=== PATIENT | female | born 1985 | race Caucasian/White ===

== ENCOUNTER 2016-04-27 10:09 | Emergency (ER) | payer OTHER ==
[~2016-04-27] VITALS: Ht 177.8 cm; Wt 72.6 kg
[~2016-04-27 10:09] MED LIST: ESCI10TA
--- NOTE | 2016-04-27 10:15 | NUR ---
AAOX3, CAME TO ER C/O LOWER BACK PAIN RADIATING DOWN BILATERAL LOWER EXTREMITIES SINCE YESTERDAY S/P BENDING OVER. RR IS EVEN AND UNLABORED WITH NAD NOTED. SKIN IS WARM AND NON DIAPHORETIC. AWAITING MD FOR EVAL.
[2016-04-27] MEDS ORDERED: HYDROCODONE/APAP 10/325MG 1 EA TABLET ONE (10:51)
[2016-04-27] MEDS ORDERED: KETOROLAC TROMETHAMINE INJ 60 MG/2 ML VIAL IM ONE (10:51)
[2016-04-27] MEDS: KETOROLAC TROMETHAMINE INJ 60 MG/2 ML VIAL IM ONE (10:59)
[2016-04-27] MEDS: HYDROCODONE/APAP 10/325MG 1 EA TABLET PO ONE (11:00)
--- NOTE | 2016-04-27 11:50 | NUR ---
Patient discharged to home in stable condition. Written and verbal after care instructions given. Patient verbalizes understanding of instruction.
[2016-04-27 12:05] VITALS: BP 120/85
== END 2016-04-27 11:50 | disposition home or self-care (01) ==
LOC: ER 10:11
DX: M54.5 Low back pain (principal); F41.9 Anxiety disorder, unspecified; F31.9 Bipolar disorder, unspecified; F32.9 Major depressive disorder, single episode, unspecified; F17.200 Nicotine dependence, unspecified, uncomplicated; Z88.6 Allergy status to analgesic agent; Z88.8 Allergy status to other drugs, medicaments and biological substances
CPT/HCPCS: 96372; 99283; A4606; J1885; Z7610